=== PATIENT | female | born 1985 | race Caucasian/White ===

== ENCOUNTER 2018-09-17 13:22 | Outpatient (REF) | payer MEDICARE, MEDICAID, SELFPAY | END 2018-09-17 13:42 | LOC: LBN 13:22 | PROVIDERS: PCP Nurse Practitioner Family; Visit Provider Nurse Practitioner Family | DX: J02.9 Acute pharyngitis, unspecified (principal) | CPT/HCPCS: 87070 ==

== ENCOUNTER 2019-01-13 16:02 | Emergency (ER) | payer MEDICARE, MEDICAID, SELFPAY ==
[2019-01-13 16:20] VITALS: BP 125/69; PULSE 76; RESP 16; TEMP 36.6; O2SAT 100
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
[2019-01-13 17:12] LABS: Bilirubin Negative (Negative); Blood Trace-lysed (Negative); Clarity Clear (Clear); Glucose Negative (Negative); Ketones Trace mg/dL (Negative); Leukocyte Esterase Negative (Negative); Nitrite Negative (Negative)
[2019-01-13 17:21] LABS: Bacteria Negative HPF (Negative); C & S Indicated? No; Casts Negative LPF (Negative); Crystals Negative HPF (Negative); Epithelial Cells Few HPF (Negative); Mucus Negative (Negative); Other Cells Negative (Negative); RBC 0-2 (0-2); WBC Negative HPF (0-5)
[2019-01-13] MEDS: Normal Saline 1,000 ML 1000 ML IV (17:23)
[2019-01-13 17:27] LABS: Abs Immature Grans 0.04 k/cumm (0.0-0.09); Absolute Basophil Count 0.02 k/cumm (0.0-0.2); Absolute Eosinophil Count 0.17 k/cumm (0.0-0.7); Absolute Lymphocyte Count 2.04 k/cumm (1.2-3.4); Absolute Monocyte Count 0.56 k/cumm (0.11-0.7); Absolute Neutrophil Count 6.93 k/cumm (1.2-6.7); Basophils % 0.2; Eosinophils % 1.7; HCT 45.2 % (36.0-46.0); HGB 15.7 g/dL (12.0-15.5); Immature Grans % 0.4; Lymphocytes % 20.9; Mean Corp. HGB Concentration 34.7 g/dL (32.0-36.0); Mean Corpuscular Hemoglobin 30.2 pg (27.0-33.0); Mean Corpuscular Volume 86.9 fL (80-95); Mean Platelet Volume 10.4 fL (8.0-11.0); Monocytes % 5.7; Neutrophils % 71.1; Platelet Count 245 x1000/uL (130-400); RBC Distribution Width 12.1 % (11.7-14.6); White Blood Cell Count 9.76 k/cumm (4.4-10.8)
[2019-01-13 17:41] LABS: ALT 19 U/L (12-78); AST 8 U/L (15-37); Albumin 4.7 g/dL (3.4-5.0); Alkaline Phosphatase 82 U/L (46-116); Anion Gap 8.9 mmol/L (3-11); BUN 13 mg/dL (7-18); Bilirubin, Total 0.5 mg/dL (0.2-1.0); CO2 28.1 mmol/L (21.0-32.0); CREATININE 0.76 mg/dL (0.55-1.02); Calcium 9.5 mg/dL (8.5-10.1); Chloride 102 mmol/L (98-107); Glucose 85 mg/dL (70-100); Lipase 90 U/L (73-393); Potassium 4.1 mmol/L (3.5-5.1); Sodium 139 mmol/L (136-145); Total Protein 8.4 g/dL (6.4-8.2)
[2019-01-13] MEDS: Simethicone 80 MG CHEW PO (18:10)
--- NOTE | 2019-01-13 18:31 | NUR.NOTE ---
Nursing Note: pt able to tolerate 2 glasses of gingerail and small snack well no increase in abdominal pain
[2019-01-13 18:40] VITALS: BP 125/69; PULSE 70; RESP 16; TEMP 36.6; O2SAT 99
== END 2019-01-13 18:41 | disposition home or self-care (01) ==
PROVIDERS: Emergency Provider Physician Assistant; PCP Nurse Practitioner Family
DX: R10.9 Unspecified abdominal pain (principal); R31.9 Hematuria, unspecified; Z98.890 Other specified postprocedural states
CPT/HCPCS: 36415; 80053; 81025; 83690; 96360; 99283; 81003; 81015; 85025

== ENCOUNTER 2019-03-21 09:55 | Outpatient (CLI) | payer MEDICARE, MEDICAID, SELFPAY ==
[2019-03-22 10:36] LABS: HIV-1/2 Ag & Ab Screen Negative (NEGAT); Hepatitis B Surface Ag Negative (NEGAT); Hepatitis C Ab w Rflx HCV PCR Negative (NEGAT)
[2019-03-22 12:16] LABS: Syphilis Serology (RPR) Negative (Negative)
== END 2019-03-21 10:15 ==
PROVIDERS: PCP Nurse Practitioner Family; Visit Provider Nurse Practitioner Women's Health
DX: Z11.3 Encounter for screening for infections with a predominantly sexual mode of transmission (principal); Z76.89 Persons encountering health services in other specified circumstances; Z11.4 Encounter for screening for human immunodeficiency virus [HIV]; Z11.59 Encounter for screening for other viral diseases
CPT/HCPCS: 36415; 86803; 87340; 87389; 86592

== ENCOUNTER 2019-03-21 11:10 | Outpatient (REF) | payer MEDICARE, MEDICAID, SELFPAY ==
--- NOTE | 2019-03-21 09:45 | PAPFT_PTH ---
PATIENT: Modesta Wong LOC: [facility] U#:[id number] AGE/SX: 34/F ROOM: RE03/21/[address]: Francisca Cross NP : 1985 BED: DIS: 03/21/2019 SPEC #: [id number] RECD: 03/21/19 13:04 STATUS: ABRAM HYLTON #: [id number] ELTON: 03/21/19 09:[address]: Francisca Cross NP DEPT: [facility] Cytology RECD BY: Marli Beck ENTERED: 03/21/19 13:05 SP TYPE: PAPFT OTHR DR: Sowmya Higgins APRN Tissues: 1 - CX/ENDOCX FOR PAP SMEARS Procedures: PAP THIN PREP/UVM Screening HPV DNA PROBE Comments: [id number] (CHLAMYDIA/GC)
[2019-03-22 13:30] LABS: Chlamydia Result Negative; GC Result Negative; Specimen Description SEE COMMENTS
== END 2019-03-21 11:30 ==
LOC: LBN 11:10
PROVIDERS: PCP Nurse Practitioner Family; Visit Provider Nurse Practitioner Women's Health
DX: Z11.3 Encounter for screening for infections with a predominantly sexual mode of transmission (principal); Z12.4 Encounter for screening for malignant neoplasm of cervix; Z11.51 Encounter for screening for human papillomavirus (HPV)
CPT/HCPCS: 87491; 87591; 88142; 87624

== ENCOUNTER 2019-05-21 13:33 | Outpatient (CLI) | payer MEDICARE, MEDICAID, SELFPAY ==
[2019-05-22 11:22] LABS: Hepatitis B Surface Ag Negative (Negative)
[2019-05-22 11:24] LABS: HIV-1/2 Ag & Ab Screen Negative (Negative)
[2019-05-22 11:36] LABS: Hepatitis C Ab w Rflx HCV PCR Negative (Negative)
[2019-05-22 13:59] LABS: Chlamydia Result Negative (Negative)
[2019-05-22 15:44] LABS: GC Result Negative (Negative)
[2019-05-22 16:43] LABS: Syphilis Total Ab w/Reflex Nonreactive (Nonreactive)
== END 2019-05-21 13:53 ==
PROVIDERS: PCP Nurse Practitioner Family; Visit Provider Nurse Practitioner Family
DX: Z11.3 Encounter for screening for infections with a predominantly sexual mode of transmission (principal); Z11.4 Encounter for screening for human immunodeficiency virus [HIV]; Z11.59 Encounter for screening for other viral diseases
CPT/HCPCS: 36415; 86803; 87340; 87389; 87491; 87591; 86780

== ENCOUNTER → 2019-06-18 08:36 | Outpatient (BNVA) | payer MEDICARE, MEDICAID, SELFPAY | PROVIDERS: PCP Nurse Practitioner Family; Referring Provider Nurse Practitioner Family; Visit Provider Nurse Practitioner Adult Health | DX: G31.84 Mild cognitive impairment of uncertain or unknown etiology (principal); R53.83 Other fatigue | CPT/HCPCS: 99204 ==

== ENCOUNTER → 2019-12-17 08:33 | Outpatient (BNVA) | payer MEDICARE, MEDICAID, SELFPAY | PROVIDERS: PCP Nurse Practitioner; Referring Provider Nurse Practitioner Family; Visit Provider Nurse Practitioner Adult Health | DX: G31.84 Mild cognitive impairment of uncertain or unknown etiology (principal) | CPT/HCPCS: 99213 ==

== ENCOUNTER 2020-03-26 11:34 | Outpatient (REF) | payer MEDICARE, MEDICAID, SELFPAY | END 2020-03-26 11:54 | LOC: LBN 11:34 | PROVIDERS: PCP Nurse Practitioner; Visit Provider Obstetrics & Gynecology | DX: B37.3 Candidiasis of vulva and vagina (principal) | CPT/HCPCS: 87480; 87510; 87660 ==

== ENCOUNTER 2021-03-04 08:54 | Outpatient (CLI) | payer MEDICARE, MEDICAID, SELFPAY ==
--- NOTE | 2021-03-04 08:45 | RT.EKG_ITS ---
APPROVED REPORT Exam: Resting ECG Reason for Exam: monitoring of med Patient Location: O HR:77 bpm ECG Measurements Heart Rate 77 AXIS AZ 194 P 48 QRSd 101 QRS 31 QT 379 T 27 QTc 430 Conclusion Sinus rhythm...normal P axis, V-rate 60- 99
== END 2021-03-04 08:55 | disposition home or self-care (01) ==
LOC: DI.KIM 08:56
PROVIDERS: PCP Nurse Practitioner; Visit Provider Nurse Practitioner
DX: F90.9 Attention-deficit hyperactivity disorder, unspecified type (principal)
CPT/HCPCS: 93010

== ENCOUNTER 2021-07-26 19:49 | Emergency (ER) | payer MEDICARE, MEDICAID, SELFPAY ==
[2021-07-26 20:06] VITALS: BP 130/64; PULSE 76; RESP 14; TEMP 36.6; O2SAT 98
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
[2021-07-26] MEDS: Acetaminophen 500 MG TAB 1000 MG PO (20:43)
--- NOTE | 2021-07-26 21:04 | DI.RAD_ITS ---
Exam(s) XR FOREARM LT XR HAND LT COMPLETE EXAM: XR FOREARM LT and XR hand left CLINICAL HISTORY: Crush injury. TECHNIQUE: 2D digital imaging was performed of the left forearm. Five views were obtained. AP, obl ique and lateral views were obtained. COMPARISON: No priors for comparison. FINDINGS: BONES: No acute fracture is present. No bony destructive lesion is seen. Visualized portion of elbow is unremarkable. SOFT TISSUE: There is soft tissue swelling in the proximal forearm. No radiopaque foreign bodies are seen. IMPRESSION: 1. No acute fracture or dislocation. 2. Soft tissue swelling in the proximal forearm. No radiopaque foreign body. DATA REPOSITORY: RADIATION DOSE DELIVERED:
--- NOTE | 2021-07-26 21:38 | DI.VRAD_ITS ---
PROCEDURE INFORMATION: Exam: XR Left Hand Exam date and time: 07/26/2021 8:32 PM Age: 36 years old Clinical indication: Injury or trauma; Other: Crush injury; Crushing; Hand; Left TECHNIQUE: Imaging protocol: XR Left hand. Views: 3 or more views. COMPARISON: CR XR FOREARM LT 07/26/2021 9:03 PM FINDINGS: Bones/joints: No evidence of fracture. Negative for dislocation. Negative for bony erosion or destructive change. Soft tissues: Negative for soft tissue air. No foreign bodies observed. IMPRESSION: No acute osseous abnormality. If symptoms persist, follow-up imaging advised. Dictated and Authenticated by: Fernando Gee MD. Ordering:ELEAZAR Toney MD
--- NOTE | 2021-07-26 21:39 | DI.VRAD_ITS ---
PROCEDURE INFORMATION: Exam: XR Left Forearm Exam date and time: 07/26/2021 8:32 PM Age: 36 years old Clinical indication: Injury or trauma; Other: Crushing injury; Arm, lower; Left TECHNIQUE: Imaging protocol: XR Left forearm. Views: 2 views. COMPARISON: No relevant prior studies available. FINDINGS: Bones/joints: No evidence of fracture. Negative for dislocation. Negative for bony erosion or destructive change. Soft tissues: Soft tissue swelling is noted in the proximal forearm. Negative for soft tissue air. No foreign bodies observed. IMPRESSION: No acute osseous abnormality. Dictated and Authenticated by: Fernando Gee MD. Ordering:ELEAZAR Toney MD
[2021-07-26 22:05] VITALS: PULSE 68; RESP 18; O2SAT 98
== END 2021-07-26 22:06 | disposition home or self-care (01) ==
PROVIDERS: Emergency Provider Registered Nurse Emergency; PCP Nurse Practitioner
DX: S57.82XA Crushing injury of left forearm, initial encounter (principal); W23.0XXA Caught, crushed, jammed, or pinched between moving objects, initial encounter; Y99.0 Civilian activity done for income or pay; M79.642 Pain in left hand
CPT/HCPCS: 29125; 99284; 73090; 73130; 99283